=== PATIENT | female | born 1965 | race Caucasian/White ===

== ENCOUNTER → 2017-01-02 | Outpatient (CLI) | payer BC ==
--- NOTE | 2017-01-02 08:28 | MM ---
Reason for exam: clinical finding. Last mammogram was performed 2 years and 1 month ago. History: Family history of breast cancer in mother. Benign MG stereo VAD BX LT of the left breast, March 11, 2014. Benign US breast aspiration single LT of the left breast, March 11, 2014. Benign US biopsy breast VAD LT of the left breast, March 11, 2014. Indicated problem(s): lump or thickening in the left breast. Physical Findings: Nurse Summary: 1 x 1.5cm nodule in the left breast at 12:30, nodularity left axillay all movable (nurse ts). MG Diagnostic Mammo w CAD NIKOLAS Bilateral CC and MLO view(s) were taken. LM view(s) were taken of the right breast. Prior study comparison: December 01, 2014, bilateral MG diagnostic mammo w CAD NIKOLAS. February 04, 2014, left breast MG work up mamm w CAD LT. The breast tissue is heterogeneously dense. This may lower the sensitivity of mammography. Nodule at the site of clinical concern. These results were verbally communicated with the patient and result sheet given to the patient on 01/02/17. ASSESSMENT: Incomplete: need additional imaging evaluation, BI-RAD 0 RECOMMENDATION: Ultrasound of the left breast. Manage patient on a clinical basis.
--- NOTE | 2017-01-02 08:30 | USB ---
Reason for exam: additional evaluation requested from abnormal screening. History: Family history of breast cancer in mother. Benign MG stereo VAD BX LT of the left breast, March 11, 2014. Benign US breast aspiration single LT of the left breast, March 11, 2014. Benign US biopsy breast VAD LT of the left breast, March 11, 2014. US Breast Limited LT Left breast ultrasound demonstrates at 1.7 x 1.7 x 1.3cm cystic lesion at 1 o'clock. These results were verbally communicated with the patient and result sheet given to the patient on 01/02/17. ASSESSMENT: Benign, BI-RAD 2 RECOMMENDATION: Routine screening mammogram of both breasts in 1 year. Manage patient on a clinical basis.
== END ==
LOC: RADMAMWWP 06:57
PROVIDERS: ATTEND Family Medicine
DX: N63 Unspecified lump in breast (principal); R92.8 Other abnormal and inconclusive findings on diagnostic imaging of breast
CPT/HCPCS: 76642; G0204

== ENCOUNTER 2017-01-24 07:52 | Day surgery (SDC) | payer BC ==
[2017-01-19 16:23] VITALS: BMI 28.1
[~2017-01-24 07:52] MED LIST: LACTATED RINGERS 1,000 ML IV SCH
[2017-01-24] MEDS ORDERED: LIDOCAINE 1% 20 ML VIAL (10MG/ML) FOR IV START INTRADERMA ONE (08:15)
[2017-01-24 08:22] VITALS: RESP 16; TEMP 97.1
[2017-01-24] MEDS ORDERED: PROPOFOL 10 MG/ML 20 ML VIAL IV ONE (08:44)
--- NOTE | 2017-01-24 09:19 | P.OP ---
Date of Procedure: 01/24/17 Preoperative Diagnosis: Blood in stool Postoperative Diagnosis: Internal/external hemorrhoids, tortuous sigmoid colon Procedure(s) Performed: Colonoscopy Implants: Anesthesia: MAC Surgeon: Melissa Paniagua Estimated Blood Loss (ml): 0 IV fluids (ml): 400 Pathology: none sent Condition: stable Disposition: PACU Indications for Procedure: Blood in stool patient had never had a colonoscopy Operative Findings: Internal/external hemorrhoids, tortuous sigmoid colon Description of Procedure: Mrs. Lennon is a 51-year-old white female who presented with a complaint of blood tinged stool and never having had a colonoscopy. She therefore was scheduled for colonoscopy. Patient was taken to the endoscopy suite and following positioning on the left side she was given sedation. A rectal examination was performed. She is noted to have large external hemorrhoids good sphincter tone no masses. Colonoscope was passed through the anus into the rectum. Was passed through the sigmoid colon up to splenic flexure transverse colon hepatic flexure right colon down to the area of the cecum. Circumferential observation mucosa did not reveal any lesions of concern in the cecum or right colon. No lesions of concern were identified in the transverse colon. The sigmoid colon was noted to be very tortuous and redundant as the scope was introduced. However no mucosal lesions of concern were identified. The scope was brought down to the rectum where it was retroflexed and internal hemorrhoids were identified. The largest external hemorrhoid complex was right posterior lateral. Impression/plan: 1. Tortuous redundant sigmoid colon 2. Internal and external hemorrhoids Plan: 1. Conservative management 2. If patient has persistent symptoms related to her hemorrhoids May recommend hemorrhoidectomy
--- NOTE | 2017-01-24 09:20 | P.DS ---
Providers Attending physician: Melissa Paniagua Primary care physician: Kan Nolasco Plan - Discharge Summary New Discharge Prescriptions: No Action No Known Home Medications [No Known Home Medications] Discharge Medication List No Known Home Medications [No Known Home Medications] 01/19/17 [History] Follow up Appointment(s)/Referral(s): Melissa Paniagua MD [STAFF PHYSICIAN] - As Needed Discharge Disposition: HOME SELF-CARE
[2017-01-24 09:39] VITALS: BP 125/82; PULSE 62
== END 2017-01-24 09:52 | disposition home or self-care (01) ==
LOC: ORWHC2ENDO 07:52
PROVIDERS: ATTEND Surgery
DX: K64.8 Other hemorrhoids (principal); K64.4 Residual hemorrhoidal skin tags; Q43.8 Other specified congenital malformations of intestine
CPT/HCPCS: 81025; 45378; J2704

== ENCOUNTER → 2017-12-27 | Outpatient (CLI) | payer BC ==
--- NOTE | 2017-12-27 13:21 | MM ---
Reason for exam: clinical finding. Last mammogram was performed 1 year ago. History: Family history of breast cancer in mother. Benign MG stereo VAD BX LT of the left breast, March 11, 2014. Benign US breast aspiration single LT of the left breast, March 11, 2014. Benign US biopsy breast VAD LT of the left breast, March 11, 2014. Indicated problem(s): lump or thickening in the right breast. Physical Findings: Nurse Summary: 3cm nodule in the right breast at 9-10 o'clock (nurse ayaan). MG 3D Diag Mammo W/Cad NIKOLAS Bilateral CC and MLO view(s) were taken. Prior study comparison: January 02, 2017, bilateral MG diagnostic mammo w CAD NIKOLAS. December 01, 2014, bilateral MG diagnostic mammo w CAD NIKOLAS. The breast tissue is heterogeneously dense. This may lower the sensitivity of mammography. Previous mammotome biopsy in the left breast x 2. Previous mass on the left has involuted. Large 4.6cm circumscribed mass 12 o'clock right breast, increased from3.5cm corresponds to the palpable site. These results were verbally communicated with the patient and result sheet given to the patient on 12/27/17. ASSESSMENT: Incomplete: need additional imaging evaluation, BI-RAD 0 RECOMMENDATION: Ultrasound of the right breast.
--- NOTE | 2017-12-27 13:31 | USB ---
Reason for exam: additional evaluation requested from abnormal screening. History: Family history of breast cancer in mother. Benign MG stereo VAD BX LT of the left breast, March 11, 2014. Benign US breast aspiration single LT of the left breast, March 11, 2014. Benign US biopsy breast VAD LT of the left breast, March 11, 2014. US Breast RT Right complete breast ultrasound includes all four quadrants, the retroareolar region and axilla. Finding demonstrates a 0.4 x 0.3 x 0.6cm lesion too small to characterize at 7 o'clock,a 0.4 x 0.3 x 0.4cm cystic lesion at the posterior nipple and a 4.4 x 3.0 x 3.7cm cystic lesion at 11 o'clock hyperechoic area anterior wall=0.8 x 0.6 x 0.6cm artifact versus mural based soft tissue, pockets and pieces necktie operator could not clear this area, aspiration recommended +/- biopsy. These results were verbally communicated with the patient and result sheet given to the patient on 12/27/17. ASSESSMENT: Suspicious, BI-RAD 4 RECOMMENDATION: Aspiration and ultrasound core biopsy of the right breast. Called Dr. Nolasco with mammographic findings and has scheduled an appointment for the patient for 12/28/17 at 11:[address] Paniagua. PRELIMINARY REPORT CALLED AND FAXED TO DR. PANIAGUA ON 12/28/17.
== END | disposition home or self-care (01) ==
LOC: RADMAMWWP 10:45
PROVIDERS: ATTEND Family Medicine
DX: N63.10 Unspecified lump in the right breast, unspecified quadrant (principal); R92.8 Other abnormal and inconclusive findings on diagnostic imaging of breast
CPT/HCPCS: 77062; 77066

== ENCOUNTER → 2017-12-28 | Outpatient (CLI) | payer BC ==
[2017-12-28 11:15] VITALS: BP 143/81; PULSE 69; TEMP 98.4; BMI 31.3
--- NOTE | 2017-12-28 11:35 | P.GSHP ---
History of Present Illness H&P Date: 12/28/17 Patient is a 52 year old white female who noted a lump in her right breast about one month ago. She denies pain. No nipple discharge or changes. Patient has had 2 stereo biopsies of the left breast in the past both of which were benign, and cyst aspirated in the left breast. Patient had a uterine ablation several years ago, she has not noted any fluctuation in size of the lesion since noted. She had a 3-D mammogram performed 12/27/2017 which revealed a large 4.6 cm circumscribed mass at 12:00 in the right breast. She subsequently underwent a ultrasound of the breast which revealed a 0.6 cm lesion at 7:00 which was felt to be too small to characterize a 0.4 cm lesion at the posterior nipple at 3.7 cm cystic lesion at 11:00 with an anterior wall 0.8 cm artifact versus mural based soft tissue. No lesions of concern were noted in the left breast. Past surgical history: 1. Right hand 2. Uterine ablation 3. Stereo biopsies of the left breast 4. D&C Past medical history: 1. Pulmonary emboli 2. Patient has an MTHFR gene mutation causing increased clotting, she is not on any blood thinners Menarche: 10 Pregnancies: 4, 1 miscarriage 3 live births the first was born when she was 19, she breast fed all Menarche: Patient had uterine ablation several years ago, no periods since than Hormones: none BCP: 2 years Family history: 1. Mother: Breast cancer, at 55 2. Father: Lung cancer he was a smoker at 71 of lung cancer - Constitutional Constitutional: Denies chills, Denies fever - EENT Eyes: denies blurred vision, denies pain Ears: deny: decreased hearing, tinnitus Ears, nose, mouth and throat: Denies headache, Denies sore throat - Breasts Breasts: bilateral: as per HPI - Cardiovascular Cardiovascular: Denies chest pain, Denies shortness of breath - Respiratory Respiratory: Denies cough, Denies 7 - Gastrointestinal Gastrointestinal: Denies abdominal pain, Denies diarrhea, Denies nausea, Denies vomiting - Genitourinary (Female) Genitourinary: Reports as per HPI - Musculoskeletal Musculoskeletal: Denies myalgias - Integumentary Integumentary: Denies pruritus, Denies rash - Neurological Neurological: Denies numbness, Denies weakness - Psychiatric Psychiatric: Denies anxiety, Denies depression - Endocrine Endocrine: Denies fatigue, Denies weight change - Hematologic/Lymphatic Comment: MTHFR gene mutation increased clotting, pulmonary embolism in the past, patient does not take any blood thinners at this time - Allergic/Immunologic Comment: none Past Medical History Past Medical History: Pulmonary Embolus (PE) Additional Past Medical History / Comment(s): anemia,RECTAL BLEEDING . MTHFR GENE MUTATION History of Any Multi-Drug Resistant Organisms: None Reported Past Surgical History: Ablation Additional Past Surgical History / Comment(s): I and D of dog bite RIGHT HAND. Patient had a D&C , NOVOSURE ENDOMETRIAL ABLATION Past Anesthesia/Blood Transfusion Reactions: No Reported Reaction Past Psychological History: No Psychological Hx Reported Smoking Status: Never smoker Past Alcohol Use History: Occasional Past Drug Use History: None Reported - Past Family History Father Family Medical History: Cancer Additional Family Medical History / Comment(s): lung cancer for father Mother Family Medical History: Cancer, Hypertension Additional Family Medical History / Comment(s): breast cancer Medications and Allergies Home Medications Medication Instructions Recorded Confirmed Type No Known Home Medications 01/19/17 01/24/17 History Allergies Allergy/AdvReac Type Severity Reaction Status Date / Time No Known Allergies Allergy Verified 01/24/17 08:15 Surgical - Exam Vital Signs Temp Pulse BP Pulse Ox 98.4 F 69 143/81 98 12/28/17 11:11 12/28/17 11:11 12/28/17 11:11 12/28/17 11:11 - General well developed, well nourished, no distress - Eyes normal ocular movement, no icteric - ENT no hearing loss, no congestion - Neck no masses, trachea midline - Respiratory normal respiratory effort, clear to auscultation - Cardiovascular Rhythm: regular Heart Sounds: normal: S1, S2 - Abdomen Abdomen: soft, non tender, no guarding, no rigid, no rebound - Neurologic no disoriented, no combative - Musculoskeletal normal gait, normal posture - Psychiatric oriented to time, oriented to person, oriented to place, speech is normal, memory intact Breasts examination: Right breast: Multiple positional exam reveals a circumscribed lesion approximately 4 cm in size posterior to the right nipple area Right axilla: Negative for adenopathy of concern Left breast: Fibrocystic changes and multiple positional exam no dominant masses or nodules of concern Left axilla: No adenopathy of concern Results Bilateral mammogram and ultrasound results reviewed from 12/27/2017. Assessment and Plan Assessment: Impression/plan: 1. Mass right breast seen radiographically most likely represents a cyst however may have a mural change for which core biopsy will be performed 2. Clotting abnormality MTHFR pedro pablo mutation resulting in prior pulmonary embolism, not on any blood thinners at this time Plan: 1. Ultrasound guided aspiration/possible core biopsy of mural change right breast cystic lesion 2. Medical management of clotting abnormality CC: Dr. Kan Nolasco
== END | disposition home or self-care (01) ==
LOC: WWCWWP 10:41
PROVIDERS: ATTEND Surgery
DX: Z53.9 Procedure and treatment not carried out, unspecified reason (principal)

== ENCOUNTER → 2018-01-02 | Day surgery (SDC) | payer BC ==
[2018-01-02 14:06] VITALS: RESP 18; BMI 31.3
--- NOTE | 2018-01-02 14:58 | USB ---
EXAMINATION TYPE: US breast aspiration single RT, MG diagnostic mammo RT wo CAD DATE OF EXAM: 01/02/2018 CLINICAL HISTORY: N63 Breast Lump. Abnormal ultrasound and mammogram. TECHNIQUE: Ultrasound guided fine-needle aspiration and/or core biopsy of right breast with clip plac ement and follow-up two-view mammogram. COMPARISON: Prior mammogram and ultrasound December 27, 2017 and older studies. FINDINGS: The procedure of ultrasound guided fine-needle aspiration and/or core biopsy was explained to the patient. Benefits, alternatives, and risks were discussed. An informed consent was then obta ined. The patient was placed in supine positioning for imaging and for the procedure. Preprocedure imaging redemonstrates a large thin-walled cyst or cystic lesion with peripheral round hyperechoic component along superficial surface at 11:00 position zone a and the right breast. The overlying skin was prep ped and draped in usual sterile fashion. Lidocaine buffered with bicarbonate was used as anesthetic into the skin and subcutaneous tissue up to area of concern in the right breast. Under ultrasound guidance, a 18-gauge needle was advanced centrally into lesion. There is successful aspiration of roughly 10 cc of dark-colored fluid. Lesion is aspirated to complete resolution. Resid ual round solid component cannot be identified for biopsy. A coil was placed at level of prior abnorm ality under ultrasound guidance. The patient tolerated the procedure well without any immediate complication. The patient was kept in the radiology department for short stay after the procedure and then discharged home in stable condi tion. Postprocedure mammogram shows successful deployment of clip in the central right breast upper aspect near round calcification at site of prior large lesion. IMPRESSION: Successful, uncomplicated ultrasound guided fine-needle aspiration of area of concern in the right breast, full pathology results to follow. Low index of suspicion at time of procedure. Favor old hematoma.
[2018-01-02 15:04] VITALS: BP 160/84; PULSE 88; TEMP 98
== END ==
LOC: RADUSWWP 13:45
PROVIDERS: ATTEND Surgery
DX: N60.01 Solitary cyst of right breast (principal); R92.1 Mammographic calcification found on diagnostic imaging of breast
CPT/HCPCS: 88108; 88305; 77065; 76942; 19000; A4648; J2001

== ENCOUNTER → 2018-01-19 | Outpatient (CLI) | payer BC ==
[2018-01-19 10:02] VITALS: BMI 31.3
--- NOTE | 2018-01-19 10:17 | P.PN ---
Subjective Progress Note Date: 01/19/18 The patient is a 52-year-old white female who is status post right breast ultrasound aspiration 01/02/2018. The cytology revealed degenerating cellular material, formal foamy histiocytes, and blood consistent with cyst contents. The patient has no complaints related to the procedure. On physical examination there is mild ecchymosis at the site of the aspiration. There is no evidence of any infection or hematoma. Lungs: Clear Heart: Regular rate and rhythm Impression/plan: 1. Patient status post aspiration of right breast cyst 2. Repeat right breast ultrasound and physician exam in 6 months time cc: Dr. Kan Nolasco Objective - Vital Signs Vital signs: Intake & Output 01/18/18 01/19/18 01/19/18 18:59 06:59 18:59 Weight 90.718 kg
== END ==
LOC: WWCWWP 09:52
PROVIDERS: ATTEND Surgery
DX: Z53.9 Procedure and treatment not carried out, unspecified reason (principal)

== ENCOUNTER → 2019-12-13 | Outpatient (CLI) | payer BC ==
--- NOTE | 2019-12-13 10:54 | MM ---
Reason for exam: clinical finding. Last mammogram was performed 1 year and 11 months ago. History: Family history of breast cancer in mother. Benign US breast aspiration single RT of the right breast, January 02, 2018. Benign MG stereo VAD BX LT of the left breast, March 11, 2014. Benign US breast aspiration single LT of the left breast, March 11, 2014. Benign US biopsy breast VAD LT of the left breast, March 11, 2014. Physical Findings: Nurse Summary: 1cm nodule in the left breast at the nipple (nurse dw). MG Diagnostic Mammo w CAD NIKOLAS Bilateral CC and MLO view(s) were taken. Prior study comparison: January 02, 2018, right breast MG diagnostic mammo RT wo CAD. December 27, 2017, bilateral MG 3d diag mammo w/cad NIKOLAS. The breast tissue is heterogeneously dense. This may lower the sensitivity of mammography. Previous mammotome biopsy in the right and left breast. There is no discrete abnormality including area of concern marked by BB. No significant new findings when compared with previous films. These results were verbally communicated with the patient and result sheet given to the patient on 12/13/19. ASSESSMENT: Benign, BI-RAD 2 RECOMMENDATION: Routine screening mammogram of both breasts in 1 year. Manage on a clinical basis with regard to left palpable.
== END | disposition home or self-care (01) ==
LOC: RADMAMWWP 07:36
PROVIDERS: ATTEND Family Medicine
DX: R92.8 Other abnormal and inconclusive findings on diagnostic imaging of breast (principal)
CPT/HCPCS: 77066

== ENCOUNTER → 2020-10-19 | Outpatient (CLI) | payer BC ==
--- NOTE | 2020-10-19 14:42 | CT ---
EXAMINATION TYPE: CT angio chest DATE OF EXAM: 10/19/2020 2:20 PM COMPARISON: 02/10/2015 HISTORY: PE CT DLP: 258.8 mGycm Automated exposure control for dose reduction was used. CONTRAST: CTA scan of the thorax is performed with IV Contrast, patient injected with 100 mL of Isovue 370, pul monary embolism protocol. . FINDINGS: LUNGS: The lungs are grossly clear, there is no concerning parenchymal mass or nodule identified. T here is no pleural effusion or pneumothorax seen. The tracheobronchial tree is patent. Subpleural no dularity seen in the superior segment of both lower lobes measuring 9 mm on the left. Retrospectively similar to the prior exam. Trace of pericardial fluid noted. MEDIASTINUM: There is satisfactory enhancement of the pulmonary artery and its branches, there is no CT evidence for pulmonary embolism. There are no greater than 1 cm hilar or mediastinal lymph nodes. Small hiatal hernia noted. Heart is enlarged. Small hiatal hernia. OTHER: Gallstone is incidentally noted. IMPRESSION: 1. No diagnostic evidence of pulmonary embolism. 2. Small hiatal hernia. 3. Cholelithiasis 4. There is a trace of pericardial fluid. 5. Stable subpleural nodularity.
== END | disposition home or self-care (01) ==
LOC: RADCTMAIN 13:30
PROVIDERS: ATTEND Nurse Practitioner
DX: K44.9 Diaphragmatic hernia without obstruction or gangrene (principal); K80.20 Calculus of gallbladder without cholecystitis without obstruction
CPT/HCPCS: 71275; Q9967

== ENCOUNTER → 2022-02-18 | Outpatient (CLI) | payer BC ==
--- NOTE | 2022-02-22 06:44 | MM ---
Reason for Exam: Screening (asymptomatic). Last mammogram was performed 2 year(s) and 3 month(s) ago. Patient History: Menarche at age 10. First Full-Term at age 19. 01/02/2018, Benign Cyst Aspiration on the right side. 03/11/2014, Benign Cyst Aspiration on the left side. 03/11/2014, Benign Core Biopsy on the left side. 03/11/2014, Benign Core Biopsy on the left side. Mother had breast cancer at or over age 50. Risk Values: Kim 5 year model risk: 3.8%. NCI Lifetime model risk: 20.5%. Prior Study Comparison: 12/27/2017 Bilateral Diagnostic Mammogram, [facility]. 01/02/2018 Right Diagnostic Mammogram, [facility]. 12/13/2019 Bilateral Diagnostic Mammogram, [facility]. Tissue Density: The breast tissue is heterogeneously dense. This may lower the sensitivity of mammography. Findings: Analyzed By CAD. There are 2 biopsy clips redemonstrated scattered throughout the left breast and single biopsy clip redemonstrated in the right breast. There are grouped benign-appearing round calcifications in the right breast redemonstrated. Benign-appearing bilateral axillary lymph nodes are again seen. There is no suspicious new group of microcalcifications or new suspicious mass in either breast. Overall Assessment: Benign, BI-RAD 2 Management: Screening Mammogram of both breasts in 1 year. A clinical breast exam by your physician is recommended on an annual basis and results should be correlated with mammographic findings. Electronically signed and approved by: Pedro Kaye M.D.
== END | disposition home or self-care (01) ==
LOC: RADMAMWWP 07:15
PROVIDERS: ATTEND Family Medicine
DX: Z12.39 Encounter for other screening for malignant neoplasm of breast (principal)
CPT/HCPCS: 77067

== ENCOUNTER → 2023-03-22 | Outpatient (CLI) | payer BC ==
--- NOTE | 2023-03-22 12:00 | CA ---
Exercise Stress Test Report Name: Savannah Lennon Exam Date: 03/22/2023 09:03 Exam Location: [place] [facility] Ht (in): 67 Wt (lb): 195 BSA: 2.00 Ordering Phys: Kan Nolasco MD Referring Phys: Kan Nolasco MD Technologist: Pawan Brown Age: 57 Gender: F : 1965 Procedure CPT: Indications: R94.31 abn ekg ICD-10 Codes: Patient History: CHEST PAIN, ABN ECG Medications: NONE Meds past 24 hrs: Pretest Chest Pain: STRESS TEST Neftali Protocol Exercise Duration (min:sec): 09:[address] Depressions (mm): Angina Score: Ferraro Score: Resting HR (bpm): 82 Peak HR (bpm): 161 Resting BP (mmHg): 154 / 98 Peak BP (mmHg): 204 / 74 MPHR: 161 Target HR: 137 % MPHR: 100 METS: 10.3 Total Dose: Peak Dose: Atropine: Double Product: 88775 BP Response: Stress Termination: TARGET HR REACHED/MAX EXERTION Stress Symptoms: NO SYMPTOMS Stress Summary: ECG ANALYSIS Resting ECG: Normal sinus rhythm normal axis normal intervals Stress ECG: Patient exercised on Neftali protocol for 9 minutes achieving 85% of predicted maximal heart rate without chest pain at peak exercise there was [address] segment depression noted in the inferolateral leads CONCLUSIONS Good exercise tolerance Abnormal stress test by EKG criteria Dr. Noé Marin MD (Electronically Signed) Final Date: 22 March 2023 11:59
== END | disposition home or self-care (01) ==
LOC: RADNMMAIN 08:42
PROVIDERS: ATTEND Family Medicine
DX: R07.9 Chest pain, unspecified (principal); R94.31 Abnormal electrocardiogram [ECG] [EKG]
CPT/HCPCS: 93017

== ENCOUNTER → 2023-03-28 | Outpatient (CLI) | payer BC ==
--- NOTE | 2023-03-28 09:35 | US ---
EXAMINATION TYPE: US abdomen complete DATE OF EXAM: 03/28/2023 COMPARISON: CT Chest CLINICAL INDICATION: Female, 57 years old with history of K80.20 CALCULUS OF GALLBLADDER W/O CHOLECYS TITIS; Gallstones visualized on CT TECHNIQUE: Multiple sonographic images of the abdomen are obtained. FINDINGS: EXAM MEASUREMENTS: Liver Length: 16.8 cm Gallbladder Wall: 0.2 cm CBD: 0.5 cm Spleen: 10.5 cm Right Kidney: 10.3 x 4.5 x 5.3 cm Left Kidney: 10.2 x 5.3 x 4.3 cm Pancreas: Obscured by bowel gas Liver: wnl Gallbladder: Small, mobile gallstones, wall not thickened Evidence for sonographic Patel's sign: No CBD: wnl Spleen: wnl Right Kidney: wnl Left Kidney: wnl, lower pole gassed out Upper IVC: wnl Abd Aorta: Proximal portion gassed out, otherwise mid and distal portions wnl The liver is homogenous. The intrahepatic portion of the IVC and proximal abdominal aorta are within normal limits. Shadowing gallstones present. Common bile duct is unremarkable. The visualized porti ons of the pancreas are homogenous. The spleen is unremarkable. Kidneys are symmetric and free of h ydronephrosis. No renal lesions are seen. IMPRESSION: 1. No evidence for acute abdominal process. 2. Cholelithiasis
== END | disposition home or self-care (01) ==
LOC: RADUSWWP 07:35
PROVIDERS: ATTEND Family Medicine
DX: K80.20 Calculus of gallbladder without cholecystitis without obstruction (principal)
CPT/HCPCS: 76700

== ENCOUNTER → 2024-07-16 | Outpatient (CLI) | payer BC ==
--- NOTE | 2024-07-16 11:32 | XR ---
EXAMINATION TYPE: XR finger LT DATE OF EXAM: 07/16/2024 11:28 AM INDICATION: Patient age:Female; 59 years old; Reason for study: R22.0; PHH. pain COMPARISON: None TECHNIQUE: Frontal, lateral and oblique views of the index finger of the left hand were obtained. FINDINGS: Normal alignment of the visualized joints. No acute osseous pathology is identified. No os seous erosions or radiopaque foreign body. There is soft tissue swelling involving the proximal aspec t of the index finger. IMPRESSION: 1. No acute osseous pathology. 2. Soft tissue swelling involving the proximal aspect of the index finger. [facility], , 07/16/2024 11:30 AM
== END | disposition home or self-care (01) ==
LOC: RADXRMAIN 11:01
PROVIDERS: ATTEND Nurse Practitioner Family
DX: R22.32 Localized swelling, mass and lump, left upper limb (principal); M79.89 Other specified soft tissue disorders